=== PATIENT | male | born 1940 | race Caucasian/White ===

== ENCOUNTER 2017-01-14 04:37 | Emergency (ER) | payer MEDICARE, OTHER ==
[~2017-01-14 04:37] MED LIST: EC ASPIRIN325 MG PO; LISINOPRIL10 MG PO; MULTI-VITAMIN1 TAB PO; PLAVIX75 MG PO; [UNRECOGNIZED DRUG - OTHER] PO
[2017-01-14] MEDS ORDERED: FISH OIL 1,0001 EA10 PO (05:04)
[2017-01-14] MEDS ORDERED: LUTEIN6 M2 PO (05:04)
[2017-01-14] MEDS ORDERED: LUTEIN6 M3 PO (05:06)
[2017-01-14 05:47] LABS: BASO % 0.1 % (0-2); EOS % 0.8 % (0-7); EOSINOPHIL ABSOLUTE COUNT 0.1 tho/cmm (0.0-0.7); HCT-HEMATOCRIT 43.3 % (36.0-53.5); HGB-HEMOGLOBIN 14.8 gm/dl (13.5-17.0); IMMATURE GRANULOCYTES ABSOLUTE 0.04 tho/cmm (0-0.03); IMMATURE GRANULOCYTES PERCENT 0.3 % (0-0.3); LYMPH ABSOLUTE COUNT 2.3 tho/cmm (0.8-4.5); MCH (MEAN CORPUSCULAR HGB) 28.2 pg (28.0-32.0); MCHC MEAN CORPUSCULAR HGB CONC 34.2 % (32.0-36.0); MCV (MEAN CELL VOLUME) 82.5 fl (82.0-96.0); MEAN PLATELET VOLUME 9.9 cmc (9.4-12.4); NEUTROPHILS % 69.8 % (40-80); PLATELET COUNT 228 tho/cmm (150-450); RED BLOOD COUNT 5.25 mil/cmm (4.40-5.70); RED CELL DISTRIBUTION WIDTH 13.6 % (12.4-16.4); WHITE BLOOD COUNT 11.5 tho/cmm (4.0-10.0)
[2017-01-14 05:57] LABS: URINE BILIRUBIN NEGATIVE (NEG); URINE BLOOD NEGATIVE (NEG); URINE GLUCOSE (UA) NEGATIVE (NEG); URINE KETONE NEGATIVE (NEG); URINE LEUKOCYTE ESTERASE NEGATIVE (NEG); URINE NITRITE NEGATIVE (NEG); URINE PROTEIN NEGATIVE (NEG); URINE SPECIFIC GRAVITY 1.005 (1.003-1.030)
[2017-01-14 05:59] LABS: URINE APPEARANCE CLEAR; URINE COLOR YELLOW
[2017-01-14 06:14] LABS: ALB/GLOB RATIO 0.8 (0.8-2.0); ALBUMIN 3.4 g/dl (3.5-5.0); ALKALINE PHOSPHATASE 88 U/L (33-138); ALT/SGPT 26 U/L (12-78); ANION GAP 9 mmol/L (0-20); AST/SGOT 22 U/L (10-40); BILIRUBIN,TOTAL 1.4 mg/dl (0.0-1.5); BLOOD UREA NITROGEN 17 mg/dl (6-24); CALCIUM 8.7 mg/dl (8.5-10.5); CARBON DIOXIDE-VENOUS 29 mmol/L (22-32); CHLORIDE 103 mmol/l (96-110); CREATININE 1.03 mg/dl (0.60-1.30); GLUCOSE 117 mg/dL (70-110); LIPASE 133 U/L (73-393); POTASSIUM 4.4 mmol/L (3.7-5.1); SODIUM 137 mmol/L (135-145); eGFR VALUE FOR BLACK 82 mL/Min
[2017-01-14] MEDS ORDERED: NORCO 5-325 TA1 EACH PO (06:33)
[2017-01-14] MEDS ORDERED: AUGMENTIN 875-1 EAC2 PO (06:33)
[2017-01-14] MEDS ORDERED: FLOMAX0.4 M1 PO (06:34)
== END 2017-01-14 06:45 ==
LOC: EDMED 04:37
PROVIDERS: Emergency Medicine
DX: N20.9 Urinary calculus, unspecified (principal); K57.32 Diverticulitis of large intestine without perforation or abscess without bleeding; I10 Essential (primary) hypertension; Z86.73 Personal history of transient ischemic attack (TIA), and cerebral infarction without residual deficits; E78.5 Hyperlipidemia, unspecified; Z79.82 Long term (current) use of aspirin; Z79.899 Other long term (current) drug therapy